=== PATIENT | female | born 1950 | race Caucasian/White ===

== ENCOUNTER → 2017-12-31 | Outpatient (CLI) | payer MEDICARE, OTHER ==
[~2017-12-31] MED LIST: AGGRENOX ER 251 CER PO; AMLODIPINE5 MG PO; ASPIRIN 81M81 MG/TA2 PO; ASPIRIN E.C. 8181 MG PO; ATACAND PO; ATENOLOL25 MG PO; CALTRATE 600 +1 TAB PO; CARDI-OMEGA1000 MG PO; CENTRUM SILVER1 TA1 PO; CLARITIN 1010 MG/TAB PO; COLACE 100100 MG/CAP PO; CPAP; CRESTOR10 MG PO; FIBER CHOICE1 CTB PO; FORTAMET1000 MG PO; GABAPENTIN300 MG PO; LANTUS100 U/ML SQ; LISINOPRIL HCTZ1 TAB PO; METFORMIN HCL500 M1 PO; MIRALAX119G PO; NASONEX SPRAY NS; NASONEX0.05 MG/AC NS; PAROXETINE20 MG PO; SIMVASTATIN10 MG PO; VICTOZA6 MG/ML SC
== END ==
LOC: COL.RAD 12:48
DX: R19.00 Intra-abdominal and pelvic swelling, mass and lump, unspecified site (principal)
CPT/HCPCS: Q9967

== ENCOUNTER → 2018-01-01 | Outpatient (CLI) | payer MEDICARE, OTHER | LOC: COL.RAD 13:09 | DX: N83.8 Other noninflammatory disorders of ovary, fallopian tube and broad ligament (principal); R93.8 Abnormal findings on diagnostic imaging of other specified body structures ==

== ENCOUNTER → 2018-08-01 | Outpatient (CLI) | payer MEDICARE, OTHER | LOC: MC.RAD 10:40 | DX: Z12.31 Encounter for screening mammogram for malignant neoplasm of breast (principal) ==

== ENCOUNTER → 2019-09-24 | Outpatient (CLI) | payer MEDICARE, OTHER | LOC: MC.RAD 07:10 | DX: Z12.31 Encounter for screening mammogram for malignant neoplasm of breast (principal) ==

== ENCOUNTER → 2020-01-01 | Outpatient (CLI) | payer MEDICARE, OTHER | LOC: COL.VAS 10:11 | DX: I34.0 Nonrheumatic mitral (valve) insufficiency (principal); R06.00 Dyspnea, unspecified; R60.9 Edema, unspecified ==

== ENCOUNTER → 2020-02-18 | Outpatient (CLI) | payer MEDICARE, OTHER | LOC: COL.RAD 13:28 | DX: C49.A3 Gastrointestinal stromal tumor of small intestine (principal); R18.8 Other ascites | CPT/HCPCS: Q9967 ==

== ENCOUNTER → 2020-09-27 | Outpatient (CLI) | payer MEDICARE, OTHER | LOC: MC.RAD 08:09 | DX: Z12.31 Encounter for screening mammogram for malignant neoplasm of breast (principal) ==

== ENCOUNTER → 2021-11-15 | Outpatient (CLI) | payer MEDICARE, OTHER | LOC: MC.RAD 07:30 | DX: Z12.31 Encounter for screening mammogram for malignant neoplasm of breast (principal) ==

== ENCOUNTER → 2023-10-31 | Outpatient (CLI) | payer MEDICARE | LOC: MC.RAD 10:44 | DX: Z12.31 Encounter for screening mammogram for malignant neoplasm of breast (principal) ==

== ENCOUNTER → 2023-11-07 | Outpatient (CLI) | payer MEDICARE | LOC: MC.RAD 08:07 | DX: R92.0 Mammographic microcalcification found on diagnostic imaging of breast (principal) ==